=== PATIENT | male | born 1960 | race Caucasian/White ===

== ENCOUNTER 2018-01-23 19:13 | Emergency (ER) | payer OTHER ==
[~2018-01-23] VITALS: Ht 175.3 cm; Wt 77.1 kg
[2018-01-23] MEDS ORDERED: NOHOMEMEDICATIONS (19:20)
[2018-01-23] MEDS ORDERED: NORCO 5-325 TA1 EACH PO (20:17)
[2018-01-23] MEDS ORDERED: CIPROFLOXACIN500 M1 PO (20:17)
[2018-01-23 21:27] VITALS: BP 157/97
== END 2018-01-23 21:27 | disposition home or self-care (01) ==
LOC: ER 19:13
DX: S62.635A Displaced fracture of distal phalanx of left ring finger, initial encounter for closed fracture (principal); F17.210 Nicotine dependence, cigarettes, uncomplicated; W31.9XXA Contact with unspecified machinery, initial encounter; Y93.89 Activity, other specified; Y92.89 Other specified places as the place of occurrence of the external cause; Y99.8 Other external cause status